=== PATIENT | male | born 1975 | race African-American/Black ===

== ENCOUNTER 2017-11-24 07:15 | Observation (INO) | payer SELFPAY ==
[2017-11-24] MEDS ORDERED: Nitroglycerin 2% Ointment 1 INCH/1 GM Packet ONE (07:31)
[2017-11-24 07:49] LABS: #Basophils 0.1 thou/uL (0.0-0.2); #Eosinphils 0.5 thou/uL (0.0-0.7); #Lymphocytes 2.2 thou/uL (1.20-3.40); #Monocytes 0.7 thou/uL (0.11-0.59); #Neutrophils 2.7 thou/uL (1.40-6.50); %Basophils 0.9 % (0.0-1.0); %Lymphocytes 35.5 % (21.0-51.0); %Monocytes 11.1 % (0.0-10.0); %Neutrophils 44.5 % (42.0-75.0); Hemoglobin 15.7 g/dL (14.0-18.0); Mean Corpuscular HGB CONC 34.8 g/dL (32.0-36.0); Mean Corpuscular Hemoglobin 35.1 pg (27.0-31.0); Mean Platelet Volume 8.6 fL (7.4-10.4); Platelet Count 160 thou/uL (130-400); Red Blood Cell (RBC) Count 4.47 mill/uL (4.70-6.10); White Blood Cell (WBC) Count 6.1 thou/uL (4.8-10.8)
--- NOTE | 2017-11-24 08:03 | RAD ---
PORTABLE CHEST ONE VIEW: Date: 11-24-17 Time: 7:50 a.m. History: Chest pain. FINDINGS: Comparison is made with exam of 05-05-17. FINDINGS/IMPRESSION: The heart size is normal. The lungs are expanded without focal areas of consolidation, pneumothorax o r pleural effusions. IMPRESSION: No acute process. POS: [facility]
[2017-11-24 08:08] LABS: ALT (SGPT) 30 U/L (8-55); AST (SGOT) 25 U/L (5-34); Albumin 4.5 g/dL (3.5-5.0); Alkaline Phosphatase 83 U/L (40-150); Anion Gap 11 mmol/L (10-20); BUN (Urea Nitrogen) 9 mg/dL (8.9-20.6); Bilirubin, Total 0.8 mg/dL (0.2-1.2); CK (CPK) 188 U/L (30-200); Calc. Creatinine Clearance 0 mL/min (70-130); Calcium 9.1 mg/dL (7.8-10.44); Carbon Dioxide 29 mmol/L (22-29); Chloride 102 mmol/L (98-107); Estimated GFR-MDRD 69; Globulin 4.1 g/dL (2.4-3.5); Glucose 89 mg/dL (70-105); Potassium 3.4 mmol/L (3.5-5.1); Protein, Total 8.6 g/dL (6.0-8.3); Sodium 139 mmol/L (136-145)
[2017-11-24 08:13] LABS: CKMB 1.6 ng/mL (0-6.6); Troponin I Less than 0.010 ng/mL (< 0.028)
[2017-11-24 08:36] LABS: Band 2 % (5-11); Eosinophils 4 % (0-10); Lymphocytes 36 % (21-51); MDiff Complete? YES; Monocytes 9 % (0-10); Neutrophil 45 % (42-75); RBC Morphology Normal; Reactive Lymphocytes 4 % (0-10)
[2017-11-24 11:17] LABS: Troponin I Less than 0.010 ng/mL (< 0.028)
[2017-11-24 11:56] VITALS: BMI 36.0
[2017-11-24] MEDS ORDERED: hydrALAZINE 20 MG/ML VIAL SLOW IVP PRN (14:16)
[2017-11-24] MEDS ORDERED: Ondansetron ODT 4 MG TAB PO PRN (14:16)
[2017-11-24] MEDS ORDERED: Acetaminophen 500 MG TAB PO PRN (14:16)
[2017-11-24] MEDS ORDERED: Ondansetron HCl/PF 4 MG/2 ML Vial IVP PRN (14:16)
[2017-11-24] MEDS ORDERED: cloNIDine 0.1 MG TAB PO PRN (14:16)
[2017-11-24 14:34] LABS: Troponin I Less than 0.010 ng/mL (< 0.028)
--- NOTE | 2017-11-24 15:58 | HP ---
DATE OF ADMISSION: 11/24/2017 PRIMARY CARE PHYSICIAN: Erik armenta. CHIEF COMPLAINT: Chest pain. HISTORY OF PRESENT ILLNESS: This is a 42-year-old -[place] male, who presents to [facility] Emergency Room with complaining of central sharp chest pain intermittent witho ut associated jaw, left arm discomfort, nausea, vomiting, or diaphoresis. The patient denied any rec ent trauma, injury, increased cough, congestion, or sick contacts. 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 The patient does state the pain has been relieved when lying down, but denied taking any sp ecific medications for the symptoms. The patient initially rated the pain 6/10, exacerbated with willy e movement of the arm. The patient admits to a strong family history of early coronary artery diseas e with his father sustaining a myocardial infarction at the age of 40. The patient denies any prior history of cardiac evaluation and states he continues to smoke over the last 10 years. The patient d enies taking any chronic aspirin. In the emergency room, the patient underwent general evaluation in cluding chest imaging showing no acute infiltrate. EKG showed nonspecific findings without ST elevat ion. The patient received aspirin 324 mg and transdermal nitroglycerin. PAST MEDICAL HISTORY: 1. Hypertension, treated with amlodipine and clonidine. 2. Tobacco abuse. PAST SURGICAL HISTORY: Reviewed and negative. CURRENT MEDICATIONS: 1. Amlodipine 10 mg 1 tablet p.o. daily. 2. Clonidine 0.2 mg p.o. at bedtime. ALLERGIES: No known drug allergies. FAMILY HISTORY: Father of complications of myocardial infarction at age 40. SOCIAL HISTORY: Patient is employed as a heavy truck driver. He smokes up to half a pack of cigarettes [place]. Drinks alcohol on the weekends, quantity unknown. No illicit drug use. REVIEW OF SYSTEMS: The following complete review of systems was negative, unless otherwise mentioned in the HPI or below: Constitutional: Weight loss or gain, ability to conduct usual activities. Skin: Rash, itching. Eyes : Double vision, pain. ENT/Mouth: Nose bleeding, neck stiffness, pain, tenderness. Cardiovascular: Palpitations, dyspnea on exertion, orthopnea. Respiratory: Shortness of breath, whee zing, cough, hemoptysis, fever or night sweats. Gastrointestinal: Poor appetite, abdominal pain, hea rtburn, nausea, vomiting, constipation, or diarrhea. Genitourinary: Urgency, frequency, dysuria, noc turia. Musculoskeletal: Pain, swelling. Neurologic/Psychiatric: Anxiety, depression. Allergy/Immun ologic: Skin rash, bleeding tendency. PHYSICAL EXAMINATION: VITAL SIGNS: On admission, blood pressure 156/110, pulse 66, respiratory rate 18, temperature 98.4 d egrees Fahrenheit, and O2 saturation 100% on room air. GENERAL APPEARANCE: This is a 42-year-old -[place] male, alert and oriented x3, pleasant, co nversant, in no acute distress. HEENT: Pupils are equal, round, and reactive to light and accommodation. Extraocular muscles are in tact. Nares patent. OP is clear. NECK: Supple, no adenopathy. No carotid bruits. CHEST: Lungs are clear to auscultation bilaterally. CARDIOVASCULAR: S1 and S2, without noted murmur. ABDOMEN: Rounded, soft, nontender, nondistended. Bowel sounds are positive in all 4 quadrants. No abdominal bruits appreciated. EXTREMITIES: Warm and dry with fair turgor. No clubbing, cyanosis or asymmetric edema appreciated. Pulses palpable distally. NEUROLOGIC: Cranial nerves II through XII are grossly intact. No focal or lateralizing signs apprec iated. MUSCULOSKELETAL: No reproducible chest tenderness. PERTINENT LABORATORY AND X-RAY FINDINGS: Sodium 139, potassium 3.4, chloride 102, CO2 of 29, BUN 9, creatinine 1.16, estimated GFR 69, glucose 89, calcium 9.1. LFTs within normal limits. Troponin I n egative x2. BNP 19, albumin 4.5. CBC showed a white blood cell count 6.1, hemoglobin 16, hematocrit 45, MCV 101, platelet count 160 with 45% neutrophils. Portable chest x-ray dated 11/24/2017 showed no acute cardiopulmonary process. EKG dated 11/24/2017 by my interpretation shows sinus mechanism wi th heart rate in the 80s. Normal R-wave progression noted in the precordial leads. Normal axis. No acute ST-T wave changes appreciated. ASSESSMENT AND PLAN: 1. Chest pain. Atypical presentation; however, with risk factors including tobacco use and strong f amily history of early coronary artery disease and hypertension, poorly controlled. We will proceed with treadmill stress testing. Check fasting lipid profile. Aspirin 324 mg daily. Continue telemet ry monitoring. 2. Tobacco abuse. We will offer smoking cessation resources prior to discharge. 3. Hypokalemia. Mild. Encourage increased potassium supplementation and oral intake. 4. Question of chronic kidney disease stage 2. Repeat creatinine in the a.m. 5. Hypertension. Labile. We will resume amlodipine 10 mg p.o. daily and clonidine 0.2 mg p.o. at b edtime. Continue to monitor serial blood pressure trend and titrate blood pressure regimen according ly. 6. Prophylaxis. Sequential compression devices while in bed. 7. Pepcid 20 mg p.o. b.i.d. 8. Code status is FULL. Surrogate medical decision maker is the patient's mother.
[2017-11-24] MEDS ORDERED: Amlodipine 10 MG TAB PO SCH (19:30)
[2017-11-24] MEDS ORDERED: cloNIDine 0.2 MG TAB PO SCH (19:30)
[2017-11-24] MEDS: Famotidine 20 MG TAB PO SCH (20:02)
[2017-11-25 07:51] VITALS: TEMP 97.8
[2017-11-25] MEDS: Famotidine 20 MG TAB PO SCH (08:55)
[2017-11-25] MEDS ORDERED: cloNIDine 0.2 MG TAB PO SCH (09:00)
[2017-11-25] MEDS ORDERED: Aspirin 325 MG TAB PO SCH (09:00)
[2017-11-25] MEDS ORDERED: Amlodipine 10 MG TAB PO SCH (09:00)
[2017-11-25 11:58] VITALS: BP 114/69
--- NOTE | 2017-11-25 12:17 | NM ---
CARDIAC SPECT: CLINICAL HISTORY: 42-year-old male with chest pain, hypertension, and smoker. Family history of coronary artery disease . TECHNIQUE: A myocardial perfusion scan was performed using the single isotope one day protocol with technetium-9 9m sestamibi. 10 mCi were injected intravenously for the rest exam followed by 27 mCi for the stress exam. A Lexiscan-walk stress test was monitored and interpreted by Dr. Santos. FINDINGS: Homogeneous tracer distribution is seen in the myocardial segments on stress and rest images without fixed or reversible defects. GATED SPECT LVEF: 59%. WALL MOTION EXAM: Normal. IMPRESSION: Normal myocardial perfusion scan. POS: [facility]
--- NOTE | 2017-11-25 13:56 | DIS ---
DATE OF ADMISSION: 11/24/2017 DATE OF DISCHARGE: 11/25/2017 DISCHARGE DIAGNOSES: 1. Chest pain, non-cardiac. 2. Tobacco use. 3. Hypertension, labile. 4. Dyslipidemia. 5. Chronic kidney disease stage 2. CONSULTATIONS: None. PERTINENT LAB AND X-RAY FINDINGS: Creatinine 1.16 with estimated GFR of 69. LFTs within normal limi ts. Troponin I negative x3. BNP 19, total cholesterol 174, triglycerides 117, HDL 29 and LDL 122. CBC within normal limits. Portable chest x-ray dated 11/24/2017 showed no acute cardiopulmonary proc ess. Cardiolite stress test dated 11/25/2017 showed no evidence for reversible or fixed ischemia wit h calculated ejection fraction of 59%. HOSPITAL COURSE: Patient was observed on the telemetry unit after initially presenting with chest pa in, with risk factors to include hypertension, strong family history as well as tobacco use. The pat ient underwent serial cardiac enzymes, which were negative x3 proceeding to exercise Cardiolite stres s testing showing no evidence of reversible or fixed ischemia with overall calculated ejection fracti on of 59%. The patient was noted with sinus mechanism throughout the hospital course without evidenc e of acute arrhythmia or dysrhythmia. Blood pressure trend was labile with recommendations for close followup on discharge for titration of antihypertensive regimen. Overall, patient clinically stable and ready for discharge on 11/25/2017. DISCHARGE MEDICATIONS: 1. Amlodipine 10 mg 1 tab p.o. daily. 2. Clonidine 0.2 mg p.o. daily. 3. Aspirin 81 mg p.o. daily. FOLLOWUP: Patient given a list of local community health clinics and will establish a primary care [facility] within the next week. CONDITION ON DISCHARGE: Stable. ACTIVITY: Ad odalys. DIET: Heart healthy. CODE STATUS: Full. DISPOSITION: Home on 11/25/2017.
[2017-11-25] MEDS ORDERED: Regadenoson 0.4 MG/5 ML SYRINGE ONE (17:13)
== END 2017-11-25 14:05 | disposition home or self-care (01) ==
LOC: ERS 07:15 → 2SW 10:28
PROVIDERS: ADMIT Family Medicine; ATTEND Family Medicine
DX: R07.89 Other chest pain (principal); F17.210 Nicotine dependence, cigarettes, uncomplicated; E78.5 Hyperlipidemia, unspecified; I12.9 Hypertensive chronic kidney disease with stage 1 through stage 4 chronic kidney disease, or unspecified chronic kidney disease; N18.2 Chronic kidney disease, stage 2 (mild); E87.6 Hypokalemia; Z79.82 Long term (current) use of aspirin; Z79.899 Other long term (current) drug therapy
CPT/HCPCS: 36415; 71045; 78452; 80053; 80061; 82550; 82553; 83880; 84484; 85025; 90471; 90732; 93005; 93017; 94760; 96374; 99406; A9500; G0009; G0378; J0360; J2785

== ENCOUNTER 2018-02-07 07:32 | Emergency (ER) | payer OTHER, SELFPAY ==
[2018-02-07] MEDS ORDERED: Lidocaine 1% w/Epinephrine 1:100K 20 ML VIAL ONE (08:08)
[2018-02-07] MEDS ORDERED: Adacel (T-DAP) 0.5 ML VIAL ONE (08:33)
== END 2018-02-07 08:50 | disposition home or self-care (01) ==
LOC: ERS 07:32
DX: L02.31 Cutaneous abscess of buttock (principal); I10 Essential (primary) hypertension; F17.210 Nicotine dependence, cigarettes, uncomplicated; Z79.899 Other long term (current) drug therapy
CPT/HCPCS: 10060; 90471; 90715; J2001